=== PATIENT | female | born 1940 | race Caucasian/White ===

== ENCOUNTER → 2017-05-27 | Outpatient (CLI) | payer MEDICARE, BC ==
[~2017-05-27] MED LIST: ADVA250A INH; DILT180T2 PO; FEXO15TA PO; LORA0.5T PO; MONT10TA4 PO; PANT40TA3 PO; SACC1CAP3 PO; TRAV0.00 EACH EYE; TYLE325T PO; VITA500C18 PO
[2017-05-27 11:46] LABS: AUTOMATED NEUTROPHIL # 3.8 TH/MM3 (1.8-7.7); BASOPHIL % 0.5 % (0.0-2.0); EOSINOPHIL # 0.1 TH/MM3 (0-0.4); EOSINOPHIL % 1.7 % (0.0-4.0); HEMATOCRIT 40.5 % (35.0-46.0); HEMOGLOBIN 13.7 GM/DL (11.6-15.3); LYMPH % 32.7 % (9.0-44.0); LYMPHOCYTE # 2.2 TH/MM3 (1.0-4.8); MEAN CELL VOLUME 91.5 FL (80.0-100.0); MEAN CORPUSCULAR HEMOGLOBIN 30.9 PG (27.0-34.0); MEAN CORPUSCULAR HGB CONC 33.8 % (32.0-36.0); MEAN PLATELET VOLUME 11.1 FL (7.0-11.0); MONO % 8.6 % (0.0-8.0); MONOCYTE # 0.6 TH/MM3 (0-0.9); NEUT % 56.5 % (16.0-70.0); PLATELET COUNT 167 TH/MM3 (150-450); RED BLOOD COUNT 4.42 MIL/MM3 (4.00-5.30); RED CELL DISTRIBUTION WIDTH 13.7 % (11.6-17.2); WHITE BLOOD COUNT 6.7 TH/MM3 (4.0-11.0)
[2017-05-27 11:53] LABS: PROTHROMBIN TIME - PATIENT 9.8 SEC (9.8-11.6)
[2017-05-27 11:57] LABS: BICARBONATE 29.1 MEQ/L (21.0-32.0); CALCIUM 9.4 MG/DL (8.5-10.1); CREATININE 0.72 MG/DL (0.50-1.00)
[2017-05-27 12:12] LABS: BILIRUBIN, URINE NEG (NEG); BLOOD, URINE SMALL (NEG); GLUCOSE,URINE NEG (NEG); KETONE, URINE NEG (NEG); NITRITE,URINE NEG (NEG); PH, URINE 5.5 (5.0-8.5); URINE COLOR LIGHT-YELLOW (YELLW/STRAW); URINE LEUKOCYTE ESTERASE NEG (NEG)
--- NOTE | 2017-05-28 22:14 | EKG ---
Date Performed: 05/27/2017 Time Performed: 11:40:04 PTAGE: 76 years EKG: Sinus bradycardia. Leftward axis Possible anteroseptal infarct - age undetermined Abnormal ECG NO PREVIOUS TRACING DOCTOR: Kinjal Garcia Interpretating Date/Time 05/28/2017 22:13:55
== END ==
LOC: CPRE 10:35
PROVIDERS: ATTEND Orthopaedic Surgery Orthopaedic Surgery of the Spine
DX: Z01.810 Encounter for preprocedural cardiovascular examination (principal); Z01.812 Encounter for preprocedural laboratory examination; M48.08 Spinal stenosis, sacral and sacrococcygeal region; M96.1 Postlaminectomy syndrome, not elsewhere classified; M53.2X6 Spinal instabilities, lumbar region; R94.31 Abnormal electrocardiogram [ECG] [EKG]
CPT/HCPCS: 36415; 80048; 81001; 85025; 85610; 85730; 93005

== ENCOUNTER 2017-06-10 06:26 | Inpatient (IN) | payer MEDICARE, BC ==
[2017-06-10] MEDS ORDERED: ACETAMINOPHEN 1000 MG/100 ML 100 ML IV ×2 (06:32→10:10)
[2017-06-10] MEDS ORDERED: VANCOMYCIN HCL 1000 MG VIAL (08:19)
[2017-06-10] MEDS ORDERED: SODIUM CHLOR 0.9% 250 ML INJ 250 ML (08:19)
[2017-06-10] MEDS ORDERED: METOPROLOL TARTRATE 25 MG TAB PO (08:30)
[2017-06-10] MEDS ORDERED: SODIUM CHLORID 0.9% 500 ML IV (08:30)
[2017-06-10] MEDS: CHLORHEXIDINE GLUCONATE 2 % 1 PACK (2 CLOTHS) TOPICAL (08:45)
[2017-06-10] MEDS: LACTATED RINGER'S 1000 ML IV (09:00)
[2017-06-10] MEDS: CHLORHEXIDINE GLUCONATE 4% SOLN 120 ML BTL TOPICAL (09:00)
[2017-06-10] MEDS: POVIDONE IODINE 5% (ANTISEPSIS KIT) 4 APPLICATIONS EACH NARE (09:00)
[2017-06-10] MEDS ORDERED: KETAMINE HCL 500 MG/5 ML VIAL (10:10)
[2017-06-10] MEDS ORDERED: FAMOTIDINE 20 MG/2 ML VIAL (10:11)
[2017-06-10] MEDS: VANCOMYCIN 1000 MG/NS 250 ML (for <70 kg) IV (10:35)
[2017-06-10] MEDS: ceFAZolin 2 GM PREMIX 50 ML IV (11:20)
[2017-06-10] MEDS: GENTAMICIN SULFATE 80 MG/2 ML VIAL (11:41)
[2017-06-10] MEDS: PROPOFOL 200 MG/20 ML AMP IV (12:00)
[2017-06-10] MEDS: ceFAZolin INJ 1,000 MG VIAL IV (12:00)
[2017-06-10] MEDS: LIDOCAINE HCL 1% PF 5 ML SYRINGE OTHER (12:00)
[2017-06-10] MEDS: ONDANSETRON HCL 4 MG/2 ML VIAL IV (12:00)
[2017-06-10] MEDS: GLYCOPYRROLATE 1 MG/5 ML SYRINGE IV PUSH (12:00)
[2017-06-10] MEDS: ePHEDrine/NS 25 MG/5 ML SYRINGE IV (12:00)
[2017-06-10] MEDS: NEOSTIGMINE 5 MG/5 ML SYRINGE IV PUSH (12:00)
[2017-06-10] MEDS: ROCURONIUM INJ 50 MG/5 ML SYRINGE IV PUSH (12:00)
[2017-06-10] MEDS ORDERED: DO NOT ADM ANY ANTICOAGULANT DRUGS (14:55)
[2017-06-10] MEDS ORDERED: MIDAZOLAM HCL 2 MG/2 ML VIAL (15:10)
[2017-06-10] MEDS: *morphine SULFATE 8 MG/ML PERIprocedure ONLY ×2 (15:29→15:51)
[2017-06-10] MEDS ORDERED: NON-FORMULARY DRUG (Fluticasone-Salmeterol Inh (Advair Diskus Inh) 1 PUFF) INH (15:45)
[2017-06-10] MEDS ORDERED: ACETAMINOPHEN/HYDROcodone 325 MG/7.5 MG TAB PO (15:45)
[2017-06-10] MEDS ORDERED: MORPHINE SULFATE 8 MG/ML INJ IV PUSH (15:45)
[2017-06-10] MEDS ORDERED: BISACODYL 10 MG SUPP RECTAL (15:45)
[2017-06-10] MEDS ORDERED: SOD PHOSPHATE/SOD BIPHOSPHATE (ADULT) ENEMA 133ML PR (15:45)
[2017-06-10] MEDS ORDERED: ALUMINUM/MAGNESIUM/SIMETH 30 ML CUP PO (15:45)
[2017-06-10] MEDS: Post-op Orders (for Pharmacy) XX (16:00)
[2017-06-10] MEDS: LACTATED RINGER'S 1000 ML INJ 1,000 ML IV (16:00)
[2017-06-10] MEDS ORDERED: NALOXONE HCL 0.4 MG/ML AMP IV PUSH (16:00)
[2017-06-10] MEDS: MORPHINE SULFATE 30 MG/30 ML PCA IV (16:11)
[2017-06-10] MEDS: LORazepam 0.5 MG TAB PO (18:05)
[2017-06-10] MEDS: ONDANSETRON HCL 4 MG/2 ML VIAL IV PUSH (20:14)
[2017-06-10] MEDS: PCA - TOTAL MG MORPHINE DELIVERED PER SHIFT (20:21)
[2017-06-10] MEDS: LATANOPROST 0.005% OPHT SOLN 2.5 ML BTL EACH EYE (20:21)
[2017-06-10] MEDS ORDERED: ZOLPIDEM TARTRATE 5 MG TAB PO (21:00)
[2017-06-10] MEDS ORDERED: NON-FORMULARY DRUG (Travoprost Opth Drops (Travatan Z Opth Drops) 1 DROP) EACH EYE (21:00)
[2017-06-11] MEDS: LACTATED RINGER'S 1000 ML INJ 1,000 ML IV ×3 (03:57→22:01)
[2017-06-11] MEDS: PCA - TOTAL MG MORPHINE DELIVERED PER SHIFT ×3 (06:00→22:00)
[2017-06-11 07:33] LABS: HEMOGLOBIN 12.2 GM/DL (11.6-15.3)
[2017-06-11 07:55] LABS: REVIEW FLAG FINAL
[2017-06-11] MEDS: PANTOPRAZOLE SOD 40 MG DELAYED RELEASE TAB PO (08:43)
[2017-06-11] MEDS: ACETAMINOPHEN/HYDROcodone 325 MG/7.5 MG TAB PO ×3 (08:43→22:00)
[2017-06-11] MEDS: MONTELUKAST SODIUM 10 MG TAB PO (18:09)
[2017-06-11] MEDS: RESP: ALBUTEROL 2.5 MG/3 ML NEB (PRN) INH (19:50)
[2017-06-11] MEDS: LATANOPROST 0.005% OPHT SOLN 2.5 ML BTL EACH EYE (21:00)
[2017-06-11] MEDS: DOCUSATE SODIUM 100 MG CAP PO (22:01)
[2017-06-12] MEDS: ACETAMINOPHEN/HYDROcodone 325 MG/7.5 MG TAB PO ×2 (03:53→09:35)
[2017-06-12] MEDS: PCA - TOTAL MG MORPHINE DELIVERED PER SHIFT (06:00)
[2017-06-12] MEDS: PANTOPRAZOLE SOD 40 MG DELAYED RELEASE TAB PO (08:57)
[2017-06-12] MEDS: DOCUSATE SODIUM 100 MG CAP PO (08:57)
== END 2017-06-12 10:39 | disposition home health service (06) | DRG 460 ==
LOC: HSDI 06:26 → N06B 17:00
PROVIDERS: Orthopaedic Surgery Orthopaedic Surgery of the Spine
PROC: 0SG00AJ Fusion of Lumbar Vertebral Joint with Interbody Fusion Device, Posterior Approach, Anterior Column, Open Approach (ICD-10-PCS; principal; 2017-06-10 10:39)
PROC: 0ST20ZZ Resection of Lumbar Vertebral Disc, Open Approach (ICD-10-PCS; 2017-06-10 10:39)
DX: M48.061 Spinal stenosis, lumbar region without neurogenic claudication (principal); M51.36 Other intervertebral disc degeneration, lumbar region; M43.16 Spondylolisthesis, lumbar region
CPT/HCPCS: 72100; 76000; 85014; 85018; 86850; 86900; 86901; 94150; 94664; 97162-GP